=== PATIENT | female | born 1935 | race Caucasian/White ===

== ENCOUNTER 2020-08-17 11:44 | Emergency (ER) | payer MEDICARE, MEDICAID ==
[~2020-08-17] VITALS: Ht 160 cm; Wt 65.0 kg
--- NOTE | 2020-08-17 12:02 | ED General ---
General Stated Complaint: LOW BP Source of Information: Patient, Family History of Present Illness Date Seen by Provider: Aug 17, 2020 Time Seen by Provider: 11:45 Initial Comments 84-year-old female presenting with her daughter from assisted living facility in [place], [place]. she reportedly had low blood pressure and low oxygen level this morning. She has been having chills and feeling weak. She has swelling to her legs that has been worse recently. She states that she urinates frequently has little control over urination. She reports that a UA was sent recently but she has not heard any results of it. She also has small sores to her buttocks that the nurses are helping to try and heal. She has chronic shortness of breath and hypoxia and wears oxygen at 2 L a minute all the time. She denies having to call for any more shortness of breath than usual. She has had some nausea and states that has been going on for a while as well. She follows with Dr. Montelongo from [place], [place] but the family did not trust seeing her or going to the local hospital so they drove over 30 minutes to come here to [place]. Associated Systoms: No Chest Pain, No Cough, No Diaphoresis; Fever/Chills (chills but denies fever); No Headaches; Malaise, Nausea/Vomiting (nausea but denies vomiting); No Seizure; Shortness of Air (chronic and no worse than usual); No Syncope; Weakness (generalized) Allergies and Home Medications Allergies Coded Allergies: Sulfa (Sulfonamide Antibiotics) (Verified Allergy, Unknown, 08/17/20) amoxicillin (Verified Allergy, Unknown, 08/17/20) cephalexin (Verified Allergy, Unknown, 08/17/20) oxycodone (Verified Allergy, Unknown, 08/17/20) promethazine (Verified Allergy, Unknown, 08/17/20) Patient Home Medication List Home Medication List Reviewed: Yes Review of Systems Review of Systems Constitutional: see HPI, chills EENTM: no symptoms reported Respiratory: see HPI Cardiovascular: see HPI Gastrointestinal: see HPI Genitourinary: see HPI Musculoskeletal: no symptoms reported Skin: see HPI Psychiatric/Neurological: See HPI Past [id number] Hx Past Med/Social Hx: Reviewed Nursing Past Med/Soc Hx Past Medical History Respiratory: Yes Pulmonary Embolism Cardiac: Yes Atrial Fibrillation, High Cholesterol, Hypertension Gastrointestinal: Yes Colitis (ulcerative colitis), Gastroesophageal Reflux Musculoskeletal: Yes Osteoporosis, Arthritis Endocrine: No HEENT: No Cancer: No Psychosocial: Yes Anxiety Physical Exam Vital Signs Vital Signs - First Documented 08/17/20 08/17/20 11:45 12:13 Temp 36.5 Pulse 87 Resp 20 B/P (MAP) 111/52 (71) Pulse Ox 97 O2 Delivery Nasal Cannula O2 Flow Rate 2.00 Capillary Refill : Height, Weight, BMI Height: '" Weight: lbs. oz. kg; BMI Method: General Appearance: No Apparent Distress, Chronically ill HEENT: Pharynx Normal Neck: Supple Respiratory: Chest Non Tender, No Accessory Muscle Use, No Respiratory Distress, Decreased Breath Sounds Cardiovascular: Regular Rate, Rhythm, Normal Peripheral Pulses Gastrointestinal: Normal Bowel Sounds, No Pulsatile Mass, Non Tender, Soft Extremity: Normal Capillary Refill, Pedal Edema (3+ pitting edema to BLE up to her thighs), Other (tender to palpation of legs where she has swelling) Neurologic/Psychiatric: Alert, Oriented x3 Skin: Warm/Dry, Other (Stage 1-2 ulcerations to bilateral buttocks, 1 on each side and measuring about 2 cm diameter) Focused Exam Lactate Level 08/17/20 11:58: Lactic Acid Level 1.02 Lactic Acid Level Laboratory Tests Test 08/17/20 11:58 Lactic Acid Level 1.02 MMOL/L (0.50-2.00) Progress/Results/Core Measures Suspected Sepsis SIRS Temperature: Pulse: Respiratory Rate: Laboratory Tests 08/17/20 11:58: White Blood Count 2.0L Blood Pressure / Mean: 08/17/20 11:58: Lactic Acid Level 1.02 Laboratory Tests 08/17/20 11:58: Creatinine 1.09, Platelet Count 102L, Total Bilirubin 0.9 08/17/20 12:03: INR Comment 1.0 Results/Orders Lab Results Laboratory Tests Test 08/17/20 11:58 08/17/20 12:03 08/17/20 13:12 Range/Units White Blood Count 2.0 L 4.3-11.0 10^3/uL Red Blood Count 1.33 L 4.35-5.85 10^6/uL Hemoglobin 4.9 *L 11.5-16.0 G/DL Hematocrit 15 *L 35-52 % Mean Corpuscular Volume 111 H 80-99 FL Mean Corpuscular Hemoglobin 37 H 25-34 PG Mean Corpuscular Hemoglobin Concent 33 32-36 G/DL Red Cell Distribution Width 23.1 H 10.0-14.5 % Platelet Count 102 L 130-400 10^3/uL Mean Platelet Volume 12.1 H 7.4-10.4 FL Immature Granulocyte % (Auto) 0 % Neutrophils (%) (Auto) 39 L 42-75 % Lymphocytes (%) (Auto) 45 H 12-44 % Monocytes (%) (Auto) 7 0-12 % Eosinophils (%) (Auto) 8 0-10 % Basophils (%) (Auto) 1 0-10 % Neutrophils # (Auto) 0.8 L 1.8-7.8 X 10^3 Lymphocytes # (Auto) 0.9 L 1.0-4.0 X 10^3 Monocytes # (Auto) 0.2 0.0-1.0 X 10^3 Eosinophils # (Auto) 0.2 0.0-0.3 10^3/uL Basophils # (Auto) 0.0 0.0-0.1 10^3/uL Immature Granulocyte # (Auto) 0.0 0.0-0.1 10^3/uL Neutrophils % (Manual) 32 % Lymphocytes % (Manual) 43 % Monocytes % (Manual) 10 % Eosinophils % (Manual) 8 % Basophils % (Manual) 1 % Band Neutrophils 5 % Atypical Lymphocytes 1 % Hypochromasia MODERATE Poikilocytosis 1+ Anisocytosis 2+ Macrocytosis 2+ Helmet Cells SLIGHT Elliptocytes SLIGHT Acanthocytes SLIGHT Sodium Level 137 135-145 MMOL/L Potassium Level 4.2 3.6-5.0 MMOL/L Chloride Level 102 98-107 MMOL/L Carbon Dioxide Level 29 21-32 MMOL/L Anion Gap 6 5-14 MMOL/L Blood Urea Nitrogen 19 H 7-18 MG/DL Creatinine 1.09 0.60-1.30 MG/DL Estimat Glomerular Filtration Rate 48 BUN/Creatinine Ratio 17 Glucose Level 105 70-105 MG/DL Lactic Acid Level 1.02 0.50-2.00 MMOL/L Calcium Level 8.7 8.5-10.1 MG/DL Corrected Calcium 9.5 8.5-10.1 MG/DL Magnesium Level 2.2 1.6-2.4 MG/DL Total Bilirubin 0.9 0.1-1.0 MG/DL Aspartate Amino Transf (AST/SGOT) 11 5-34 U/L Alanine Aminotransferase (ALT/SGPT) 6 0-55 U/L Alkaline Phosphatase 116 40-136 U/L Troponin I < 0.30 <0.30 NG/ML C-Reactive Protein 3.83 H <0.50 MG/DL Pro-B-Type Natriuretic Peptide 1402.0 H <75.0 PG/ML Total Protein 6.1 L 6.4-8.2 GM/DL Albumin 3.0 L 3.2-4.5 GM/DL Prothrombin Time 13.4 12.2-14.7 SEC INR Comment 1.0 0.8-1.4 Activated Partial Thromboplast Time 24 24-35 SEC Urine Color YELLOW Urine Clarity SL CLOUDY Urine pH 7.0 5-9 Urine Specific [place] 1.015 L 1.016-1.022 Urine Protein NEGATIVE NEGATIVE Urine Glucose (UA) NEGATIVE NEGATIVE Urine Ketones NEGATIVE NEGATIVE Urine Nitrite NEGATIVE NEGATIVE Urine Bilirubin NEGATIVE NEGATIVE Urine Urobilinogen 1.0 < = 1.0 MG/DL Urine Leukocyte Esterase 1+ H NEGATIVE Urine RBC (Auto) NEGATIVE NEGATIVE Urine RBC NONE /HPF Urine WBC 50-100 H /HPF Urine Squamous Epithelial Cells NONE /HPF Urine Crystals NONE /LPF Urine Bacteria LARGE H /HPF Urine Casts PRESENT /LPF Urine Hyaline Casts 10-25 H /LPF Urine Mucus SMALL H /LPF Urine Culture Indicated YES My Orders Orders - NICK DEL CID MD Cbc With Automated Diff (08/17/20 11:50) Comprehensive Metabolic Panel (08/17/20 11:50) Blood Culture (08/17/20 11:50) Ua Culture If Indicated (08/17/20 11:50) Chest 1 View Ap/Pa Only (08/17/20 11:50) Ed Iv/Invasive Line Start (08/17/20 11:50) Crp Fs (08/17/20 11:50) Lactic Acid Analyzer (08/17/20 11:50) Monitor-Rhythm Ecg Trace Only (08/17/20 11:50) O2 (08/17/20 11:50) Ekg Tracing (08/17/20 11:50) Probnp Fs (08/17/20 11:50) Magnesium (08/17/20 11:50) Troponin I Fs (08/17/20 11:50) Manual Differential (08/17/20 11:58) Protime With Inr (08/17/20 12:29) Partial Thromboplastin Time (08/17/20 12:29) Fecal Occult Bedside (08/17/20 13:24) Urine Culture (08/17/20 13:12) Levofloxacin 500 Mg/100 Ml Iv (Levaquin (08/17/20 14:13) Vital Signs/I&O 08/17/20 08/17/20 08/17/20 11:45 12:13 17:48 Temp 36.5 36.3 Pulse 87 72 Resp 20 16 B/P (MAP) 111/52 (71) 124/68 Pulse Ox 97 98 98 O2 Delivery Nasal Cannula Nasal Cannula Nasal Cannula O2 Flow Rate 2.00 2.00 Capillary Refill : Progress Note #1: Progress Note Obtain labs and urine to look for infection or electrolyte imbalance or anemia or cardiac event that may be contributing to her symptoms of low blood pressure. Her blood pressure here is doing fine without being low. Progress Note #2: Progress Note Lab shows pancytopenia but with increased anemia with a hemoglobin of 4.9. Will try to get old labs from clinic since pt has never been here and no records available on her. Her chemistry does not show any acute significant normality. Her chest x-ray is clear of infiltrate or acute process Progress Note #3: Progress Note Fecal occult bedside test is negative and pt has normal brown colored stool. Her urine is showing infection with LE, WBC and bacteria. D/w pt and family about admit and that she likely would benefit from blood transfusion. Will treat for UTI with Levaquin since allergic to sulfa, pcn, cephalosporin. Pt and family advised that she would likely need to be admitted to hospital that has Hematology to help evaluate her low hgb. While [facility] does have Hematology family requested to have her go to [facility] in [place] because of her having recent admit there for lymphedema. [id number] Dr. Julio from [facility] accepted pt for transfer and requested blood be given if possible but advised that as a stand alone ED I only have a couple of uncrossmatched units of blood for trauma patients and with pt being hemodynamically stable currently will defer until she can get crossmatched blood unless she has worsening symptoms before transport. ECG Initial ECG Impression Date: Aug 17, 2020 Initial ECG Impression Time: 12:18 Initial ECG Rate: 82 Initial ECG Rhythm: Normal Sinus Initial ECG Comparisson: No Previous ECG Available Comment Normal sinus rhythm with heart rate of 82 bpm. HI interval [address] elevation. QT interval 371 ms with a QTc interval 434 ms. No prior tracing available for comparison. Diagnostic Imaging Diagonstic Imaging: Xray Comments [facility] [place], [place] NAME: SANJUANA BARRERA [facility] REC#: [id number] PT STATUS: REG ER : 1935 PHYSICIAN: NICK DEL CID MD ADMIT DATE: 08/17/20/ER FS Draft Date of Exam:08/17/20 CHEST 1 VIEW AP/PA ONLY Indication: Chills and low blood pressure. Time of exam: 11:51 AM No prior studies are available for comparison. Heart size normal. There is ectasia and tortuosity of the descending thoracic aorta. Multilevel kyphoplasty changes mid and lower thoracic spine are noted. Lungs appear free of acute infiltrates. There is no failure. No effusion or pneumothorax is identified. Impression: No acute cardiopulmonary process is detected. Dictated on workstation # [id number] Dict: 08/17/20 1227 Trans: 08/17/20 1230 CVB [id number] Interpreted by: MARIFER ROSA MD Electronically signed by: Reviewed: Reviewed by Me Departure Impression Primary Impression: Anemia Qualified Codes: D64.9 - Anemia, unspecified Additional Impression: Cystitis without hematuria Disposition: XF SHT-TRM HOSP Condition: Stable Transfer Transfer Reason: Patient preference (Family request [facility] in [place] since recent admit there ) Time Spoke to Accepting Phy: 14:24 Transfer Progress Notes [address] Julio for the hospitalist service at [facility] and he accepted the patient for transfer. He did request blood be provided for the patient here however the only blood products I have available are uncrossed matched units for trauma patient. Since the patient is still hemodynamically stable at this point will defer until she can get crossmatched blood. Awaiting bed assignment from [facility] to arrange for transport of patient. will infuse a dose of Levaquin 500 mg IV while waiting on transfer. Transfer Facility: [place], [place] Method of Transfer: EMS Departure-Patient Inst. Referrals: KIANA MONTELONGO DO (PCP/Family) Primary Care Physician NICK DEL CID MD Aug 17, 2020 12:02
[2020-08-17 12:25] LABS: HEMOGLOBIN 4.9 G/DL (11.5-16.0); MEAN CORPUSCULAR HEMOGLOBIN 37 PG (25-34)
[2020-08-17 12:26] LABS: BASOPHILS % (AUTO) 1 % (0-10); EOSINOPHILS % (AUTO) 8 % (0-10); HEMATOCRIT 15 % (35-52); LYMPHOCYTES % (AUTO) 45 % (12-44); MEAN CORPUSCULAR HGB CONC 33 G/DL (32-36); MEAN CORPUSCULAR VOLUME 111 FL (80-99); MEAN PLATELET VOLUME 12.1 FL (7.4-10.4); MONOCYTES % (AUTO) 7 % (0-12); NEUTROPHILS % (AUTO) 39 % (42-75); PLATELET COUNT 102 10^3/uL (130-400)
[2020-08-17 12:27] LABS: EOSINOPHILS # (AUTO) 0.2 10^3/uL (0.0-0.3); LYMPHOCYTES # (AUTO) 0.9 X 10^3 (1.0-4.0); MONOCYTES # (AUTO) 0.2 X 10^3 (0.0-1.0); NEUTROPHILS # (AUTO) 0.8 X 10^3 (1.8-7.8)
--- NOTE | 2020-08-17 12:31 | Diagnostic Imaging Report ---
Indication: Chills and low blood pressure. Time of exam: 11:51 AM No prior studies are available for comparison. Heart size normal. There is ectasia and tortuosity of the descending thoracic aorta. Multilevel kyphoplasty changes mid and lower thoracic spine are noted. Lungs appear free of acute infiltrates. There is no failure. No effusion or pneumothorax is identified. Impression: No acute cardiopulmonary process is detected. Dictated by: Dictated on workstation # [id number]
[2020-08-17 12:48] LABS: BILIRUBIN,TOTAL 0.9 MG/DL (0.1-1.0); CALCIUM 8.7 MG/DL (8.5-10.1); CREATININE SERUM 1.09 MG/DL (0.60-1.30); MAGNESIUM 2.2 MG/DL (1.6-2.4); POTASSIUM 4.2 MMOL/L (3.6-5.0)
[2020-08-17 12:49] LABS: TOTAL PROTEIN 6.1 GM/DL (6.4-8.2)
[2020-08-17 13:14] LABS: PROTHROMBIN TIME PATIENT 13.4 SEC (12.2-14.7)
[2020-08-17 13:33] LABS: BACTERIA,URINE LARGE /HPF; BILIRUBIN,URINE NEGATIVE (NEGATIVE); CLARITY,URINE SL CLOUDY; COLOR,URINE YELLOW; GLUCOSE, URINE (UA) NEGATIVE (NEGATIVE); KETONES,URINE NEGATIVE (NEGATIVE); LEUKOCYTE ESTERASE ,URINE 1+ (NEGATIVE); NITRITE,URINE NEGATIVE (NEGATIVE); PROTEIN,URINE NEGATIVE (NEGATIVE); WBC,URINE 50-100 /HPF
[2020-08-17 14:08] LABS: BAND NEUTROPHILS 5 %; LYMPHOCYTES % (MANUAL) 43 %; NEUTROPHILS % (MANUAL) 32 %
[2020-08-17 14:09] LABS: ANISOCYTOSIS 2+; ATYPICAL LYMPHOCYTES 1 %; BASOPHILS % (MANUAL) 1 %; EOSINOPHILS % (MANUAL) 8 %; HYPOCHROMASIA MODERATE; MONOCYTES % (MANUAL) 10 %; POIKILOCYTOSIS 1+
[2020-08-17 14:10] LABS: ACANTHOCYTES SLIGHT; ELLIPT/OVALOCYTES SLIGHT; HELMET/BITE CELLS SLIGHT
[2020-08-17 17:48] VITALS: BP 124/68
== END 2020-08-17 19:36 | disposition short-term general hospital (02) ==
LOC: EDBD 11:46 → ER FS 11:46
DX: D64.9 Anemia, unspecified (principal); N30.90 Cystitis, unspecified without hematuria; I10 Essential (primary) hypertension; L89.321 Pressure ulcer of left buttock, stage 1; L89.311 Pressure ulcer of right buttock, stage 1; R06.02 Shortness of breath
CPT/HCPCS: 36415; 71045; 80053; 81000; 82274; 83605; 83735; 83880; 84484; 85007; 85027; 85610; 85730; 86141; 87040; 87077; 87088; 87186; 93005; 93041